=== PATIENT | female | born 1950 | race Caucasian/White ===

== ENCOUNTER 2018-02-20 11:38 | Emergency (ER) | payer OTHER ==
[~2018-02-20] VITALS: Ht 160 cm; Wt 80.7 kg
[2018-02-20] MEDS ORDERED: DICLOFENAC POTA50 MG (12:25)
== END 2018-02-20 17:50 | disposition home or self-care (01) ==
LOC: ER 11:38
DX: M75.51 Bursitis of right shoulder (principal)

== ENCOUNTER 2023-06-29 14:50 | Emergency (ER) | payer OTHER ==
[~2023-06-29] VITALS: Ht 152.4 cm; Wt 81.6 kg
[~2023-06-29 14:50] MED LIST: DICLOFENAC POTA50 MG
[2023-06-29 18:29] LABS: HEMATOCRIT 38.8 % (36.0-45.00); HEMOGLOBIN 13.5 g/dL (12.0-15.00); MEAN CELL VOLUME 86.2 fL (80.00-100.00); MEAN CORPUSCULAR HGB CONC 34.8 g/dl (32.0-36.0); PLATELET COUNT 271 K/uL (150-450); RED BLOOD COUNT 4.51 M/uL (4.00-6.00)
[2023-06-29 18:46] LABS: INR 1.04; PROTHROMBIN TIME 10.9 SECONDS (9.0-11.5)
[2023-06-29 18:48] LABS: D DIMER 0.26 MG/L
[2023-06-29 19:01] LABS: ALBUMIN 3.8 gm/dL (3.4-5.0); BILIRUBIN TOTAL 0.4 mg/dL (0.3-1.2); CALCIUM 9.4 mg/dL (8.5-10.1); CREATININE SERUM 0.62 mg/dL (0.55-1.02); GFR 94.89; GLOBULINA 3.8 G/DL (2.4-3.5); POTASSIUM 3.37 mEq/L (3.5-5.1); TOTAL PROTEIN 7.6 gm/dL (6.4-8.2)
[2023-06-29 19:07] LABS: PH,URINE 5.5 (5.0-8.0); URINE APPEARANCE Clear; URINE BILIRRUBIN Negative (NEGATIVE); URINE BLOOD Negative; URINE COLOR Yellow; URINE GLUCOSE Negative (NEGATIVE); URINE LEUKOCYTE Moderate; URINE NITRATE Negative; URINE PROTEIN Negative (NEGATIVE)
[2023-06-29 19:08] LABS: URINE RBC 17.5 uL (0.0-20.8); URINE WBC 131.5 uL (0.0-23.2)
== END 2023-06-29 21:19 | disposition home or self-care (01) ==
LOC: ER 14:50
PROVIDERS: General Practice
DX: I82.592 Chronic embolism and thrombosis of other specified deep vein of left lower extremity (principal); Z91.018 Allergy to other foods
CPT/HCPCS: 73560; 96372; 99284; J1650